=== PATIENT | female | born 1990 | race African-American/Black ===

== ENCOUNTER 2020-05-03 17:27 | Emergency (ER) | payer OTHER ==
[~2020-05-03] VITALS: Ht 152.4 cm; Wt 63.5 kg
[2020-05-03 17:32] VITALS: BP 108/60; TEMP 99.1
[2020-05-03 18:06] LABS: PLATELET COUNT 217 K/uL (152-353)
[2020-05-03 18:08] LABS: POTASSIUM 3.6 mmol/L (3.6-5.2)
== END 2020-05-03 18:40 | disposition home or self-care (01) ==
LOC: ED 17:27
PROVIDERS: Family Medicine
DX: K21.9 Gastro-esophageal reflux disease without esophagitis (principal)
CPT/HCPCS: 80053; 81025; 82150; 83690; 85027; 99283